=== PATIENT | female | born 1970 | race African-American/Black ===

== ENCOUNTER 2018-11-09 16:11 | Emergency (ER) | payer SELFPAY ==
[~2018-11-09] VITALS: Ht 157.5 cm; Wt 59.0 kg
[2018-11-09 16:43] VITALS: BP 118/60
[2018-11-09 17:22] LABS: APPEARANCE,URINE CLEAR; BILIRUBIN, URINE NEGATIVE (NEGATIVE); COLOR,URINE PALE YELLOW; GLUCOSE, URINE (UA) NEGATIVE (NEGATIVE); KETONES,URINE 1+ (NEGATIVE); LEUKOCYTE ESTERASE ,URINE NEGATIVE (NEGATIVE); NITRITE,URINE NEGATIVE (NEGATIVE); PH,URINE 5 (4.5-8.0); PROTEIN,URINE NEGATIVE (NEGATIVE); UROBILINOGEN,URINE NORMAL MG/DL (0.0-1.0)
[2018-11-09 17:28] LABS: ANION GAP 15 mmol/L (5-15); BLOOD UREA NITROGEN 14 mg/dL (7-18); CALCIUM 8.7 MG/DL (8.5-10.1); CARBON DIOXIDE 21 MMOL/L (21-32); CHLORIDE 112 MMOL/L (98-107); HEMOGLOBIN 7.5 G/DL (12.0-16.0); MEAN CORPUSCULAR VOLUME 68 FL (80-99); PLATELET COUNT 449 K/UL (150-450); POTASSIUM 3.6 MMOL/L (3.5-5.1); RED BLOOD COUNT 3.68 M/UL (4.20-5.40); RED CELL DISTRIBUTION WIDTH 15.8 % (11.6-14.8); SODIUM 148 MMOL/L (136-145); WHITE BLOOD COUNT 5.8 K/UL (4.8-10.8)
--- NOTE | 2018-11-09 17:32 | Emergency Room Report ---
History of Present Illness General Chief Complaint: Overdose Source: Patient Present Illness HPI Disclaimer: Please note that this report is being documented using DRAGON technology. This can lead to erroneous entry secondary to incorrect interpretation by the dictating instrument. HPI: 48-year-old female with a history of substance abuse presents for evaluation by [facility] department for abnormal behavior and suspected drug use. The patient was reportedly found by [employer] "swimming" on the sidewalk flailing her arms. They were called by a bystander. She was combative with them and received 5 mg intramuscular Versed prior to arrival. She arrives sedated though arousable with painful stimulation. No evidence of trauma. She cannot provide any history at this time. PMH: Substance abuse PSH: Unknown Allergies: None listed in medical chart Social Hx: Unable to obtain Allergies: Coded Allergies: No Known Allergies (Unverified , 11/09/18) Nursing Documentation-PMH Past Medical History: No Stated History Review of Systems All Other Systems: limited - Clinical condition Physical Exam Vital Signs Date Time Temp Pulse Resp B/P (MAP) Pulse Ox O2 Delivery O2 Flow Rate FiO2 11/09/18 16:07 88 16 135/83 (100) 95 Room Air 11/09/18 16:43 98.0 General: Sedated. Sonorous respirations. No acute distress HEENT: NC/AT. No scalp or face hematomas, lacerations or abrasions. Posterior 3 mm and reactive bilaterally. Cardiovascular: RRR. S1 and S2 normal. Systolic ejection murmur best heard at the left sternal border Resp: Sonorous respirations. Normal work of breathing. No cough, wheezing or crackles appreciated Abdomen: Abdomen is soft, nondistended. Nontender Skin: Intact. No abrasions, laceration or rash over the exposed skin. No obvious track ha or signs of abscess MSK: Normal tone and bulk. Moving all extremities. No obvious deformity. Neuro: Sedated, sleeping comfortably. Medical Decision Making Diagnostic Impression: Primary Impression: Microcytic anemia Additional Impressions: PCP (phencyclidine) abuse Cocaine abuse Methamphetamine abuse ER Course 48-year-old female with unknown medical history aside from polysubstance abuse according to [facility] presents for evaluation of abnormal behavior and suspected drug use. [facility] arrival for agitation. She is in no distress. We will start broad metabolic and infectious work-up. No evidence of trauma. Will monitor for improvement and advance work-up as needed. Laboratory Tests Test 11/09/18 16:35 11/09/18 17:58 White Blood Count 5.8 K/UL (4.8-10.8) Red Blood Count 3.68 M/UL (4.20-5.40) L Hemoglobin 7.5 G/DL (12.0-16.0) L Hematocrit 25.0 % (37.0-47.0) L Mean Corpuscular Volume 68 FL (80-99) L Mean Corpuscular Hemoglobin 20.5 PG (27.0-31.0) L Mean Corpuscular Hemoglobin Concent 30.2 G/DL (32.0-36.0) L Red Cell Distribution Width 15.8 % (11.6-14.8) H Platelet Count 449 K/UL (150-450) Mean Platelet Volume 3.7 FL (6.5-10.1) L Neutrophils (%) (Auto) % (45.0-75.0) Lymphocytes (%) (Auto) % (20.0-45.0) Monocytes (%) (Auto) % (1.0-10.0) Eosinophils (%) (Auto) % (0.0-3.0) Basophils (%) (Auto) % (0.0-2.0) Differential Total Cells Counted 100 Neutrophils % (Manual) 42 % (45-75) L Lymphocytes % (Manual) 50 % (20-45) H Monocytes % (Manual) 4 % (1-10) Eosinophils % (Manual) 2 % (0-3) Basophils % (Manual) 2 % (0-2) Band Neutrophils 0 % (0-8) Platelet Estimate Adequate Platelet Morphology Normal Polychromasia 2+ Hypochromasia 2+ Anisocytosis 1+ Microcytosis 2+ Urine Color Pale yellow Urine Appearance Clear Urine pH 5 (4.5-8.0) Urine Specific [place] 1.025 (1.005-1.035) Urine Protein Negative (NEGATIVE) Urine Glucose (UA) Negative (NEGATIVE) Urine Ketones 1+ (NEGATIVE) H Urine Blood Negative (NEGATIVE) Urine Nitrite Negative (NEGATIVE) Urine Bilirubin Negative (NEGATIVE) Urine Urobilinogen Normal MG/DL (0.0-1.0) Urine Leukocyte Esterase Negative (NEGATIVE) Urine HCG, Qualitative Negative (NEGATIVE) Sodium Level 148 MMOL/L (136-145) H Potassium Level 3.6 MMOL/L (3.5-5.1) Chloride Level 112 MMOL/L (98-107) H Carbon Dioxide Level 21 MMOL/L (21-32) Anion Gap 15 mmol/L (5-15) Blood Urea Nitrogen 14 mg/dL (7-18) Creatinine 1.0 MG/DL (0.55-1.30) Estimate Glomerular Filtration Rate 59.4 mL/min (>60) Glucose Level 74 MG/DL (74-106) Lactic Acid Level 2.40 mmol/L (0.4-2.0) H 2.20 mmol/L (0.66-2.22) Calcium Level 8.7 MG/DL (8.5-10.1) Total Bilirubin 0.2 MG/DL (0.2-1.0) Aspartate Amino Transferase (AST) 26 U/L (15-37) Alanine Aminotransferase (ALT) 26 U/L (12-78) Alkaline Phosphatase 57 U/L (46-116) Total Creatine Kinase 216 U/L (26-308) Creatine Kinase MB 2.1 NG/ML (0.0-3.6) Creatine Kinase MB Relative Index 0.9 Troponin I 0.000 ng/mL (0.000-0.056) Total Protein 7.4 G/DL (6.4-8.2) Albumin 3.3 G/DL (3.4-5.0) L Globulin 4.1 g/dL Albumin/Globulin Ratio 0.8 (1.0-2.7) L Salicylates Level 1.8 ug/mL (2.8-20) L Urine Opiates Screen Negative (NEGATIVE) Acetaminophen Level < 2 MCG/ML (10-30) L Urine Barbiturates Screen Negative (NEGATIVE) Phencyclidine (PCP) Screen Positive (NEGATIVE) H Urine Amphetamines Screen Positive (NEGATIVE) H Urine Benzodiazepines Screen Positive (NEGATIVE) H Urine Cocaine Screen Positive (NEGATIVE) H Urine Marijuana (THC) Screen Positive (NEGATIVE) H Serum Alcohol 155 mg/dL EKG Diagnostic Results EKG Time: 16:41 Rate: normal Rhythm: NSR ST Segments: no acute changes Other Impression Sinus rhythm, normal axis, slightly prolonged QTC at 480 ms. No acute ischemic changes. Rhythm Strip Diag. Results Rhythm Strip Time: 16:14 EP Interpretation: yes Rate: 70s Rhythm: NSR Reevaluation Time: 21:51 Last Vital Signs Date Time Temp Pulse Resp B/P (MAP) Pulse Ox O2 Delivery O2 Flow Rate FiO2 11/09/18 16:43 98.0 75 18 118/60 96 Room Air Status: improved Reevaluation Impression Patient was allowed to metabolize in the emergency department approximately 5 hours. She is now awake and alert. She admits to polysubstance abuse. When asked about her anemia she denies any hematochezia, melena or jose hematemesis. She did state that she was vomiting last week and had one episode of blood-streaked mucus but denied any large-volume hematemesis or persistent hemoptysis. She states she has never been evaluated that she is intermittently dizzy which she says has been her baseline "since she was 13 years old." Denies any dark or tarry stools. FOBT is negative. Continues to receive IV fluids for dehydration. We will send an iron panel to further evaluate. May require admission depending on results. 2300: Iron studies are consistent with iron deficiency anemia likely secondary to the patient's polysubstance use and alcohol use. States that she was on iron supplementation in the past but states that the pills were "disgusting" and therefore stopped taking them. She does not want to be admitted for anemia work -up at this time. Patient is now clinically sober and has good insight into her medical condition. She is able to make her own decisions at this time. She stated that she would refuse taking any supplement medications even if they were prescribed to her. The patient is walking around the emergency department without difficulty. She is now awake and somewhat verbally combative with staff. She can follow-up as an outpatient for her anemia which I strongly advised her to do. I also prescribed her iron supplementation though she stated state that she would not take it. Patient walked out of the emergency department with a friend to take her home Disposition: HOME, SELF-CARE Condition: Improved Scripts Iron,Carbonyl/Vit C/Vit B12/Fa (IRON 100 PLUS TABLET) 1 Each Tablet 1 EACH PO DAILY for 30 Days, #30 TAB Prov: Hemant Veronica MD 11/09/18 Hemant Veronica MD Nov 09, 2018 17:32
[2018-11-09 17:40] LABS: ALANINE AMINOTRANSFERASE 26 U/L (12-78); ALBUMIN 3.3 G/DL (3.4-5.0); ALBUMIN/GLOBULIN RATIO 0.8 (1.0-2.7); ALKALINE PHOSPHATASE 57 U/L (46-116); ASPARTATE AMINO TRANSFERASE 26 U/L (15-37); BILIRUBIN,TOTAL 0.2 MG/DL (0.2-1.0); CKMB 2.1 NG/ML (0.0-3.6); CREATINE KINASE 216 U/L (26-308)
[2018-11-09 18:02] VITALS: BP 122/76
[2018-11-09 19:44] VITALS: BP 141/91
[2018-11-09 22:09] LABS: % IRON SATURATION 4 % (15-50); IRON 16 ug/dL (50-175); TOTAL IRON BINDING CAPACITY 412 ug/dL (250-450)
[2018-11-09] MEDS ORDERED: IRON 100 PLUS1 EACH PO (22:44)
[2018-11-09 23:05] VITALS: BP 138/88
--- NOTE | 2018-11-11 15:15 | Cardiology Report ---
APPROVED REPORT EKG Measurement Heart [id number] WA [id number] Normal sinus rhythm Nonspecific T wave abnormality Prolonged QT Abnormal ECG
== END 2018-11-09 23:05 | disposition home or self-care (01) ==
LOC: EDBD 16:11 → EMR 21:40
DX: D50.9 Iron deficiency anemia, unspecified (principal); F15.10 Other stimulant abuse, uncomplicated; F14.10 Cocaine abuse, uncomplicated; F19.10 Other psychoactive substance abuse, uncomplicated
CPT/HCPCS: 36415; 80053; 80307; 81003; 81025; 82550; 82553; 83540; 83550; 83605; 84484; 85007; 85025; 93005; 96360; 96361; 99284; G0480; 80329